=== PATIENT | male | born 1955 | race Caucasian/White ===

== ENCOUNTER 2023-11-03 13:47 | Emergency (ER) | payer OTHER, MEDICAID ==
[~2023-11-03] VITALS: Ht 175.3 cm; Wt 95.3 kg
[2023-11-03 13:51] VITALS: BP 149/79; PULSE 70; RESP 17; TEMP 97.6; O2SAT 98
== END 2023-11-03 14:57 | disposition home or self-care (01) ==
LOC: MED 13:47
DX: Z02.89 Encounter for other administrative examinations (principal); I10 Essential (primary) hypertension; Z98.890 Other specified postprocedural states
CPT/HCPCS: 99283